=== PATIENT | male | born 1990 | race Hispanic/Latino ===

== ENCOUNTER 2018-07-30 14:20 | Emergency (ER) | payer OTHER ==
[~2018-07-30] VITALS: Ht 177.8 cm; Wt 70.5 kg
[2018-07-30 14:21] VITALS: BP 132/82
[2018-07-30] MEDS ORDERED: CYCL10TA PO (14:48)
[2018-07-30] MEDS ORDERED: NAPR-837 PO (14:48)
== END 2018-07-30 14:54 | disposition home or self-care (01) ==
LOC: M ED 14:20
DX: S13.4XXA Sprain of ligaments of cervical spine, initial encounter (principal); X58.XXXA Exposure to other specified factors, initial encounter; Y92.89 Other specified places as the place of occurrence of the external cause; M62.838 Other muscle spasm